=== PATIENT | male | born 1990 | race Two or more races ===

== ENCOUNTER 2021-05-07 19:50 | Emergency (ER) | payer SELFPAY ==
[~2021-05-07] VITALS: Ht 170.2 cm; Wt 90.7 kg
[2021-05-07 19:51] VITALS: BP 148/96
== END 2021-05-08 00:29 | disposition left against medical advice (07) ==
LOC: ER 19:50
DX: K04.7 Periapical abscess without sinus (principal); Z53.21 Procedure and treatment not carried out due to patient leaving prior to being seen by health care provider